=== PATIENT | female | born 1955 | race African-American/Black ===

== ENCOUNTER → 2016-07-09 | Outpatient (CLI) | payer BC ==
--- NOTE | 2016-07-09 16:59 | KCIC ---
PROCEDURE MR of the right shoulder HISTORY Pain due to repetitive work. TECHNIQUE Standard noncontrast images are obtained. COMPARISON None FINDINGS Acromioclavicular joint is mildly osteo arthritic. Mild undersurface mass-effect. Full-thickness rupture of the supraspinatus tendon measures at least 2.5 cm AP diameter. Retraction measures 3 cm. Partial tearing and tendinosis through the infra spinatus tendon. Moderate volume loss and fatty infiltration of the supraspinatus muscle, with severe fatty infiltration of the infraspinatus muscle. Subscapularis tendinosis with mild partial tearing. Small subdeltoid bursal effusion. Trace glenohumeral joint fluid. Limited labrum examination due to some motion. Signal identified at the superior labrum compatible with degeneration or tear. The biceps tendon demonstrates some tendinosis at the bicipital groove entrance but no rupture. No bone lesion identified or aggressive bone destruction. Bone marrow edema is seen at the greater tuberosity. No evidence of acute soft tissue abnormality. IMPRESSION 1. Moderate size full-thickness retracted tear of the supraspinatus tendon, with partial infraspinatus and subscapularis tendon tearing. Moderate to severe muscle atrophy. 2. Superior labral degeneration or tearing. Electronically signed by: Adrián Manuel MD (Jul 09, 2016 16:58:21)
== END | disposition home or self-care (01) ==
LOC: KCIC MRI 15:48
PROVIDERS: ATTEND Orthopaedic Surgery Sports Medicine
DX: M75.101 Unspecified rotator cuff tear or rupture of right shoulder, not specified as traumatic (principal); M25.411 Effusion, right shoulder; M62.89 Other specified disorders of muscle
CPT/HCPCS: 73221

== ENCOUNTER 2016-09-23 09:03 | Day surgery (SDC) | payer BC ==
[~2016-09-23] VITALS: Ht 152.4 cm; Wt 55.3 kg
[~2016-09-23 09:03] MED LIST: ATOR10TA60 PO; BUPIVACAINE MPF 0.5% 30 ML VIAL. ONE; CEFAZOLIN 1GM IVPB FOR OMNI 50 ML IV PRN; FENTANYL PF 100 MCG/2 ML VIAL. IV PRN; HYDROmorphone 2 MG/ML VIAL IV PRN; IBUP-1007 PO; IV RINGERS,LACTATED 1000ML 1,000 ML IV SCH; LIDOCAINE 1% 1 ML SYRINGE. ID PRN; LIDOCAINE 1% 20 ML VIAL. ONE; LISI1TAB3 PO; MORPHINE SULFATE 2 MG/ML DISP.SYRIN. IV PRN; NAPR220C4 PO; ONDANSETRON PF 4 MG/2 ML VIAL. IV PRN; PROCHLORPERAZINE 10 MG/2 ML VIAL. IV PRN
[2016-09-23] MEDS ORDERED: SUCCINYLCHOLINE 200 MG/10 ML VIAL. ONE (09:14)
[2016-09-23] MEDS ORDERED: FENTANYL PF 100 MCG/2 ML VIAL. ONE (09:16)
[2016-09-23] MEDS ORDERED: LIDOCAINE 2% 100 MG/5 ML SYRINGE. ONE (09:16)
[2016-09-23] MEDS ORDERED: PROPOFOL 20 ML IV ONE (09:16)
[2016-09-23] MEDS ORDERED: ROCURONIUM 50 MG/5 ML VIAL. ONE (09:17)
[2016-09-23] MEDS ORDERED: BUPIVACAINE 0.5% 50 ML VIAL. ONE (09:53)
[2016-09-23] MEDS ORDERED: EPINEPHRINE 1 MG/ML VIAL. ONE (09:53)
[2016-09-23] MEDS ORDERED: MIDAZOLAM HCL/PF 2 MG/2 ML VIAL. ONE (09:53)
--- NOTE | 2016-09-23 09:59 | DISCH ---
DISCHARGE INSTRUCTIONS Condition on Discharge Condition on Discharge: Stable Activity After Discharge Activity Instructions for Disc: Other, see below Other activity instructions: arm to remain in sling Bathing Instructions: Shower-keep dressing dry Weight Bearing Status after Di: Non weight bearing Diet after Discharge Diet after Discharge: Regular Wound Incision Care Wound/Incision Care: Ice to area for comfort, Keep wound/cast CDI, Change dressing Contacting the DRKarol after DC Call your doctor for: Concerns you may have Follow-Up Follow up with: Mohsen or Shelly in 2wks ORLIN VALENCIA II, MD Sep 23, 2016 09:59
--- NOTE | 2016-09-23 10:00 | PDOC ---
BRIEF OPERATIVE NOTE Date: Sep 23, 2016 Pre-Op Diagnosis R RTC tear Post-Op Diagnosis same Procedure Performed Mini-open RTC repair Surgeon Shelly Blister Packaging Machine Operator Michelle Anesthesiologist Octavio Anesthesia Type: General, Local, Regional Blood Loss 25mL Complications none ORLIN VALENCIA II, MD Sep 23, 2016 10:00
[2016-09-23] MEDS ORDERED: ONDANSETRON PF 4 MG/2 ML VIAL. ONE (10:29)
[2016-09-23] MEDS ORDERED: DEXAMETHASONE SOD PHOS 20 MG/5 ML VIAL. ONE (10:29)
[2016-09-23] MEDS ORDERED: SEVOFLURANE 31 TO 60 MINUTES. IH ONE (10:29)
[2016-09-23] MEDS ORDERED: PHENYLEPHRINE in 0.9% NACL PF 1 MG/10 ML DISP.SYRIN. IV ONE (10:32)
[2016-09-23] MEDS ORDERED: EPHEDRINE PF IN SALINE 50 MG/5 ML DISP.SYRIN. IV ONE (10:52)
[2016-09-23 12:41] VITALS: BP 138/68
--- NOTE | 2016-09-23 16:59 | OP ---
DATE OF SURGERY: 09/23/2016 SURGEON: Charly Valencia M.D. CLEANING TECHNICIAN: Josselyn Martinez. ANESTHESIA: General plus regional nerve block plus local anesthetic. PREOPERATIVE DIAGNOSIS: Right rotator cuff tear. POSTOPERATIVE DIAGNOSIS: Right rotator cuff tear. PROCEDURE PERFORMED: Mini open right rotator cuff repair. ESTIMATED BLOOD LOSS: 25 mL. COMPLICATIONS: None. REASON FOR PROCEDURE: The patient is a very pleasant 61-year-old female, who failed a conservative therapy such as exercise program and injections for her right shoulder pain and dysfunction. Because of this, we had a discussion of risks, benefits, alternatives of the above procedure and she elected to proceed. DESCRIPTION OF PROCEDURE: The patient was greeted in the preoperative area by myself. Correct extremity was marked and verified. She was taken to the operative suite after Anesthesiology placed a regional nerve block. Antibiotics were started en route. Once in the OR, she was transferred gently supine to the OR table and secured to the bed with all pressure points padded and had successful induction of general anesthesia. We then placed a large pad under her legs and set her up in a modified beach chair position, maintaining her C-spine in neutral position as we did so. I then proceed to prep and drape the right upper extremity and shoulder girdle in our usual sterile fashion including Ioban at the periphery. I then palpated, marked surface anatomy and made approximately a 5-cm incision off the lateral edge of her acromion. I dissected the subcutaneous tissue with electrocautery and identified the deltoid fascia and incised this in line with the skin incision. I then identified a deltoid raphe and used the scalpel to incise this in a stab-type fashion and a Milmay to divide the fibers. I then placed my Gelpi retractor and then deltoid muscle fibers and excised the bursal tissue. I then inspected the visible portion of the glenohumeral joint, noted the large retracted rotator cuff tear, involving the supraspinatus and anterior infraspinatus. After this, I palpated bluntly in the subdeltoid space to free up any adhesions. I then passed Ultrabraid sutures through her rotator cuff and after passing 5 through, pulled on the tendon and had good bounce. I did use a Osborne above and below the spine superior to the cuff to free up any adhesions back there. The tendon had good bounce. I used a rongeur at the footprint just off the articular margin to create a small bony trough and I passed the bottom of one suture in the top of the preceding sutures through bone tunnel using a free needle and then tied these down from posterior to anterior giving a good solid repair. There is no motion or gapping at the repair site. After this, I closed the deltoid raphe with simple interrupted 0 Vicryl. Inverted interrupted 2-0 was used for subcutaneous tissue and running 4-0 Monocryl in subcuticular fashion was used for skin. No complications. The patient tolerated surgery well. At the conclusion of the surgery, the right upper extremity and shoulder was cleansed and dried and sterile dressing was applied followed by an abduction pillow sling. She was then awakened from anesthesia and transferred gently supine to the recovery room cart and taken to PACU in stable and extubated condition. Postop plan is for her to begin her therapy, addressing me back in clinic. She will be nonweightbearing x 6 weeks. Her right upper extremity will remain in the sling, with the exception, for hygiene reasons. We will see her back in 2 weeks. CHARLY VALENCIA MD DR: NAS/wolf JOB#: [id number] / [id number] [place]
--- NOTE | 2016-09-24 06:31 | ACF ---
MARIN WARNER 09/24/16 0631: Admit Criteria Forms Admit Criteria Forms Admit Criteria Forms MUSCULOSKELETAL DISEASE GRG Clinical Indications for Admission to Inpatient Care (Place 'X' for any and all applicable criteria): Hospital admission is needed for appropriate care of the patient because of 1 or more of the following: [ ]I. Fracture, dislocation, or other musculoskeletal injury requiring inpatient care(medical) as indicated by 1 or more of the following(4)(5)(6)(7) [ ]a) Vertebral fracture requiring observation for instability or neurologic compromise (8) [ ]b) Compartment syndrome (proven or cannot be ruled out during observation level of care) (9) [ ]c) Limb-threatening injury [ ]d) Major injury requiring inpatient stabilization such as traction initiation or external fixation before internal fixation or closure of complex or open fracture [ ]e) Major injury requiring inpatient treatment after emergency or observation level care (as appropriate) [ ]f) Severe pain requiring acute inpatient management [ ]g) Injury with suspicion of abuse or neglect (eg., child, dependent elderly) [ ]II. Newly diagnosed or suspected bone, joint, or orthopedic device infection (e.g., osteomyelitis, septic arthritis) needing 1 or more of the following(1)(2)(3) [ ]a) IV antibiotics that cannot be initiated in other than inpatient setting (e.g., patient too unstable or home infusion not available) [ ]b) Device removal or replacement [ ]c) Bone or soft tissue debridement [ ]d) Joint drainage (drain placement or repetitive aspirations) [ ]III. Severe rheumatologic disease (e.g., systemic lupus erythematosus, rheumatoid arthritis) with complications or comorbidities (Also use Optimal Recovery Care Criteria or General Recovery Criteria as appropriate on the basis of predominant condition), including 1 or more of the following( 10)(11)(12)(13) [ ]a) Severe infection (e.g., CORRECTIONAL COUNSELOR/CASE MANAGER infection, sepsis) (14) [ ]b) Respiratory complications, including 1 or more of the following : [ ]i) Pleural effusion with respiratory compromise [ ]ii) Pulmonary hypertension with congestive failure [ ]iii) Respiratory failure [ ]iv) Pulmonary hemorrhage (15) [ ]c) Hematologic disease, including 1 or more of the following: [ ]i) Coagulopathy with bleeding [ ]ii) Thrombosis with hypercoagulable state [ ]iii) Thrombotic thrombocytopenic purpura [ ]d) Cerebritis with seizures, psychosis, or other severe abnormalities [ ]e) Vertebral destruction with monitoring needed for cervical myelopathy& possible respiratory compromise [ ]f) Exacerbation that requires inpatient treatment (e.g., intravenous immunosuppression) (16) [ ]g) Acute renal failure [ ]h) Cerebritis with seizures, psychosis, Altered mental status, or other neurologic abnormalities [ ]i) Pericardial effusion with tamponade [ ]j) Vertebral destruction, with monitoring needed for cervical myelopathy and possible respiratory compromise [ ]IV. Severe vasculitis with complications or comorbidities (Also use Optimal Recovery Care Criteria General Recovery Criteria as appropriate on the basis of predominant condition), including 1 or more of the following(11)(12)(17)(18)(19)(20) [ ]a) Exacerbation that requires inpatient treatment (e.g., intravenous immunosuppression) (19)(21) [ ]b) Pulmonary hemorrhage (15) [ ]c) CORRECTIONAL COUNSELOR/CASE MANAGER vasculitis with seizures, psychosis, Altered mental status that is severe or persistent, or other severe abnormalities (22) [ ]d) Cerebral infarction [ ]e) Gastrointestinal ischemia [ ]f) Gangrene or threatened amputation [ ]g) Renal failure (16) [ ]h) Other significant complications of vasculitis ( eg., tissue or organ ischemia, organ dysfunction ) [ ]V. Severe myopathy as indicated by 1 or more of the following (28)(29) [ ]a) New onset of airway compromise or inability to swallow [ ]b) Respiratory deterioration with observation needed for impending respiratory failure [ ]c) Exacerbation that requires inpatient treatment (e.g., intravenous immunosuppression) [ ]. Severe crystal gout (arthropathy) indicated by 1 or more of the following (23)(24) [ ]a) Severe pain requiring acute inpatient management [ ]b) Exacerbation that requires inpatient treatment (e.g., intravenous treatment) [ ]VII.Rhabdomyolysis and 1 or more of the following (25)(26)(27) [ ]a) Acute renal failure [ ]b) Need for intravenous hydration after emergency or observation level care (as appropriate) [ ]c) Inability to maintain oral hydration [ ]d) Change in mental status [ ]e) Electrolyte abnormality that remains after emergency or observation level care (as appropriate) [ ]VIII Post amputation complication, as indicated by ANY ONE of the following [ ]a) Infection [ ]b) Dehiscence [ ]c) Myodesis failure [X]IX. Severe pain requiring acute inpatient management due to musculoskeletal condition [ ]X. Musculoskeletal Disease and ALL of the following: [ ]a) Symptom or finding for which emergency and observation care have failed or are not considered appropriate (Use General Criteria: Observation Care as appropriate) [ ]b) Presence of ANY ONE of the following [ ]i) A General Admission Criteria [ ]ii) A Pediatric General Admission Criteria The original [facility] [employer] content created by [employer] [facility] [employer] has been revised. The portions of the content which have been revised are identified through the use of italic text or in bold, and [facility] has neither reviewed nor approved the modified material. All other unmodified content is copyright [employer] [facility]. Please see references footnoted in the original [facility] [employer] edition 2016 ORLIN VALENCIA II, MD 09/25/16 0907: Admit Criteria Forms Admit Criteria Forms Admit Criteria Forms Patient was not admitted, she underwent outpatient surgery MARIN WARNER Sep 24, 2016 06:31 ORLIN VALENCIA II, MD Sep 25, 2016 09:07
== END 2016-09-23 13:02 | disposition home or self-care (01) ==
LOC: SURG 09:03
PROVIDERS: ATTEND Orthopaedic Surgery Sports Medicine
DX: S46.011A Strain of muscle(s) and tendon(s) of the rotator cuff of right shoulder, initial encounter (principal); X58.XXXA Exposure to other specified factors, initial encounter; Y93.9 Activity, unspecified; Y92.9 Unspecified place or not applicable; Y99.9 Unspecified external cause status; D64.9 Anemia, unspecified; E78.00 Pure hypercholesterolemia, unspecified; I10 Essential (primary) hypertension; M19.90 Unspecified osteoarthritis, unspecified site; Z87.39 Personal history of other diseases of the musculoskeletal system and connective tissue; Z90.710 Acquired absence of both cervix and uterus; Z72.0 Tobacco use
CPT/HCPCS: 23410; J0171; J0330; J0690; J1100; J2250; J2370; J2405; J2704; J3490; J3010; J2001